=== PATIENT | female | born 1940 | race Caucasian/White ===

== ENCOUNTER 2023-11-16 09:48 | Emergency (ER) | payer OTHER ==
[2023-11-16] MEDS ORDERED: NA CHLORIDE 0.9% 1,000 ML ONE (10:18)
[2023-11-16] MEDS ORDERED: FAMOTIDINE 20 MG/2 ML VIAL IV ONE (10:18)
[2023-11-16] MEDS ORDERED: NA CHLORIDE 0.9% 500 ML ONE (10:18)
--- NOTE | 2023-11-16 10:34 | RAD REPORT ---
EXAMINATION: ONE VIEW CHEST XR CLINICAL INDICATION: Female, 83 years old.,ABDOMINAL DISTENTION TECHNIQUE: Frontal chest projection is submitted. Examination is limited by patient positioning and t echnique. COMPARISON: 06/22/2011 FINDINGS: Crescentic right midlung pleural-based opacity measuring up to 2 cm is progressive or more discrete t maloney on prior exam. The lungs are well inflated and otherwise clear. No pneumothorax or sizable effusion. The heart is normal in size. IMPRESSION: Right midlung pleural-based 2 cm opacity, is indeterminate. This deserves additional evaluation by de dicated chest CT, which can be performed on an outpatient basis.
[2023-11-16 10:53] LABS: PT Prothrombin Time 17.2 SECONDS (9.4-12.5); Protime INR 1.56
[2023-11-16 10:56] LABS: Hematocrit 37.9 % (36.0-45.0); Hemoglobin 12.9 g/dL (12.0-15.0); MCH 30.3 pg (27.0-35.0); MCV 88.9 fL (80-100); MPV 8.7 fL (7.6-11.3); Platelets 434 thou/uL (152-406); RBC Red Blood Cell Count 4.26 M/uL (3.86-4.86); Red Cell Distribution Width 17.4 % (12.1-15.2)
[2023-11-16 11:08] LABS: Albumin 2.4 g/dL (3.4-5.0); Albumin/Globulin Ratio 0.5 (1.1-1.8); Anion Gap 9.8 mEq/L (5.0-15.0); Bilirubin Direct 12.6 mg/dL (0-0.2); Bilirubin Indirect, Calculated 2.8 mg/dL (0.2-0.8); Bilirubin Total 15.4 mg/dL (0.2-1.0); Globulin 4.4 g/dL (2.3-3.5); Magnesium 1.8 mg/dL (1.6-2.4); Potassium 2.8 mEq/L (3.5-5.1); Protein, Total 6.8 g/dL (6.4-8.2); Troponin High Sensitivity 12.3 pg/mL (<58.9)
[2023-11-16 11:17] LABS: Calcium Oxalate Crystals- Ur Few /HPF (None Seen); Specific Gravity 1.009 (1.005-1.030); Sqamous Epithelial <5 /HPF (None Seen); Transitional Epithelial <5 /HPF (None Seen); Urine Bacteria None Seen /HPF (<20); Urine Bilirubin 2+ (Negative); Urine Blood Negative (Negative); Urine Clarity Turbid (Clear); Urine Color Dark-Yellow (Yellow); Urine Culture Reflex Order NOT NEEDED; Urine Glucose NEGATIVE (Negative); Urine Ketones NEGATIVE (Negative); Urine Microscopic Reflex YN ORDER UMIC; Urine Mucus Slight /HPF (None Seen); Urine Nitrite NEGATIVE (Negative); Urine Protein NEGATIVE (Negative); Urine RBC <5 /HPF (None Seen); Urine Urobilinogen Normal (Normal); Urine WBC <5 /HPF (<5); Urine pH 6.5 (5.0-7.0)
[2023-11-16] MEDS ORDERED: DIGOXIN 0.25 MG/ML AMP ONE (11:18)
[2023-11-16] MEDS ORDERED: METOPROLOL XL 50 MG TAB PO ONE (11:18)
[2023-11-16] MEDS ORDERED: METOPROLOL TARTRATE 5 MG/5 ML INJ IV ONE ×3 (11:19→12:19)
[2023-11-16] MEDS ORDERED: KCL 20 MEQ/100 mL IVPB 100 ML IV ONE (11:19)
[2023-11-16] MEDS ORDERED: POTASSIUM 25 MEQ EFFERV TAB ONE (11:19)
[2023-11-16 12:15] LABS: Blood Morphology Comment NOTED (NOT SEEN); Differential Total Cells Count 100; Lymphocytes 11 % (15-42); Monocytes 13 % (0-10); Platelet Estimate INCR; Segmented Neutrophils 76 % (40-80); Target Cells 3+
[2023-11-16 12:16] LABS: Rouleau NOTED; Stomatocytes 3+
[2023-11-16] MEDS ORDERED: MAGNESIUM SULFATE 1 gm IVPB 1 GM/100 ML BAG IV ONE (12:19)
--- NOTE | 2023-11-16 12:19 | EDPHYS ---
Physician Documentation [facility] Name: Aimee Mixon Age: 83 yrs Sex: Female : 1940 Arrival Date: 11/16/2023 Time: 09:48 Bed 6 Private MD: SHAMIKA Physician Gagandeep Beaulieu HPI: 11/15 12:10 This 83 yrs old Female presents to ER via Wheelchair with complaints of teddy Abnormal Lab Results, Jaundice. 12:10 The patient presents with abdominal distention. Onset: The symptoms/episode teddy began/occurred 2 week(s) ago. jaundice , painless. Onset: The symptoms/episode began/occurred 2 week(s) ago. The symptoms do not radiate. Associated signs and symptoms: none. Modifying factors: The symptoms are alleviated by nothing, the symptoms are aggravated by nothing. Severity of pain: At its worst the pain was mild in the emergency department the pain is unchanged. Severity of symptoms: At their worst the symptoms were mild in the emergency department the symptoms are unchanged. Historical: - Allergies: 10:19 Avelox; ap3 10:19 Azithromycin; ap3 10:19 Keflex; ap3 10:19 Latex; ap3 10:19 PENICILLINS; ap3 10:19 Sulfa (Sulfonamide Antibiotics); ap3 10:19 Rifampin; ap3 - PMHx: 10:19 None; ap3 - Immunization history:: Client reports having NOT received the Covid vaccine. - Infectious Disease History:: Denies. - Social history:: Smoking status: Patient denies any tobacco usage or history of. - Family history:: not pertinent. ROS: 12:10 Constitutional: Negative for fever, chills, and weight loss, Eyes: Negative for injury, teddy pain, redness, and discharge, ENT: Negative for injury, pain, and discharge, Neck: Negative for injury, pain, and swelling, Cardiovascular: Negative for chest pain, palpitations, and edema, Respiratory: Negative for shortness of breath, cough, wheezing, and pleuritic chest pain, Back: Negative for injury and pain, : Negative for injury, bleeding, discharge, and swelling, MS/Extremity: Negative for injury and deformity, Skin: Negative for injury, rash, and discoloration, Neuro: Negative for headache, weakness, numbness, tingling, and seizure, Psych: Negative for depression, anxiety, suicide ideation, homicidal ideation, and hallucinations, Allergy/Immunology: Negative for hives, rash, and allergies, Endocrine: Negative for neck swelling, polydipsia, polyuria, polyphagia, and marked weight changes, Hematologic/Lymphatic: Negative for swollen nodes, abnormal bleeding, and unusual bruising, 12:10 Abdomen/GI: Positive for abdominal pain, nausea, of the epigastric area, right upper quadrant and left upper quadrant, 12:10 Skin: Positive for jaundice, Exam: 12:10 Constitutional: This is a well developed, well nourished patient who is awake, alert, teddy and in no acute distress. Head/Face: Normocephalic, atraumatic. Eyes: Pupils equal round and reactive to light, extra-ocular motions intact. Lids and lashes normal. Conjunctiva and sclera are non-icteric and not injected. Cornea within normal limits. Periorbital areas with no swelling, redness, or edema. ENT: Nares patent. No nasal discharge, no septal abnormalities noted. Tympanic membranes are normal and external auditory canals are clear. Oropharynx with no redness, swelling, or masses, exudates, or evidence of obstruction, uvula midline. Mucous membranes moist. Neck: Trachea midline, no thyromegaly or masses palpated, and no cervical lymphadenopathy. Supple, full range of motion without nuchal rigidity, or vertebral point tenderness. No Meningismus. Chest/axilla: Normal chest wall appearance and motion. Nontender with no deformity. No lesions are appreciated. Cardiovascular: Regular rate and rhythm with a normal S1 and S2. No gallops, murmurs, or rubs. Normal PMI, no JVD. No pulse deficits. Respiratory: Lungs have equal breath sounds bilaterally, clear to auscultation and percussion. No rales, rhonchi or wheezes noted. No increased work of breathing, no retractions or nasal flaring. Abdomen/GI: Soft, non-tender, with normal bowel sounds. No distension or tympany. No guarding or rebound. No evidence of tenderness throughout. Back: No spinal tenderness. No costovertebral tenderness. Full range of motion. Female : Normal external genitalia. MS/ Extremity: Pulses equal, no cyanosis. Neurovascular intact. Full, normal range of motion. Neuro: Awake and alert, GCS 15, oriented to person, place, time, and situation. Cranial nerves II-XII grossly intact. Motor strength 5/5 in all extremities. Sensory grossly intact. Cerebellar exam normal. Normal gait. Psych: Awake, alert, with orientation to person, place and time. Behavior, mood, and affect are within normal limits. 12:10 ECG was reviewed by the Attending Physician. Vital Signs: 10:16 Pulse 93; Resp 17; Temp 98.6; Pulse Ox 99% on R/A; Weight 96.62 kg; Height 5 ft. 5 in. ;ap3 10:43 BP 136 / 105; Pulse 89; Resp 16; Pulse Ox 98% ; ko1 11:10 BP 129 / 105; Pulse 186; Resp 24; Pulse Ox 98% on R/A; ko1 11:45 BP 123 / 76; Pulse 145; Resp 22; Pulse Ox 97% ; ko1 11:53 BP 129 / 105; Pulse 144; Resp 24; Pulse Ox 99% ; ko1 12:15 BP 127 / 105; Pulse 138; Resp 22; Pulse Ox 97% ; ko1 12:20 BP 127 / 105; Pulse 140; ko1 12:40 BP 128 / 107; Pulse 112; Resp 26; Pulse Ox 97% ; ko1 14:37 BP 134 / 86; Pulse 134; Resp 26; Pulse Ox 99% ; ko1 10:16 Body Mass Index 35.44 (96.62 kg, 165.1 cm) ap3 MDM: 10:07 Patient medically screened. teddy 14:11 Differential Diagnosis altered mental status, sepsis, flu. Differential diagnosis: teddy diverticulitis, gastritis, gastroesophageal reflux disease, Irritable bowel syndrome, Mesenteric ischemia or infarction, non-specific abd pain, pancreatitis, Peptic Ulcer Disease, Perf. Duodenal Ulcer, Pyelonephritis, Ureterolithiasis, urinary tract infection. Data reviewed: vital signs, nurses notes, lab test result(s), EKG, radiologic studies, CT scan, plain films. Consideration of Admission/Observation Escalation of care including admission/observation considered. I considered the following discharge prescriptions or medication management in the emergency department Medications were administered in the Emergency Department. See MAR. Independent interpretation of the following test(s) in the Emergency Department EKG: See my EKG interpretation above. Test considered but Not performed: MRI: no mrcp. Historians other than the Patient: Family Member: family well informed. Care significantly affected by the following chronic conditions: none. Counseling: I had a detailed discussion with the patient and/or guardian regarding the historical points, exam findings, and any diagnostic results supporting the discharge/admit diagnosis, lab results, radiology results, the need to transfer to another facility, for higher level of care, [facility] does not immediately have the required specialist. 11/15 09:55 Order name: Basic Metabolic Panel; Complete Time: 11:11 [facility] 11/15 09:55 Order name: CBC with Diff; Complete Time: 13:10 [facility] 11/15 09:55 Order name: LFT's; Complete Time: 11:11 [facility] 11/15 09:55 Order name: Magnesium; Complete Time: 11:11 [facility] 11/15 09:55 Order name: NT PRO-BNP; Complete Time: 11:11 [facility] 11/15 09:55 Order name: PT-INR; Complete Time: 11:11 [facility] 11/15 09:55 Order name: Troponin HS; Complete Time: 11:11 [facility] 11/15 09:55 Order name: Lipase; Complete Time: 11:11 [facility] 11/15 09:55 Order name: Urinalysis w/ reflexes; Complete Time: 11:59 [facility] 11/15 09:55 Order name: AMMONIA; Complete Time: 11:11 [facility] 11/15 11:00 Order name: Manual Differential; Complete Time: 13:10 EDMS 11/15 09:55 Order name: XRAY Chest (1 view); Complete Time: 11:11 [facility] 11/15 12:12 Order name: Chest Abdomen Pelvis W Cont; Complete Time: 13:10 EDFL 11/15 09:55 Order name: Cardiac monitoring; Complete Time: 10:40 [facility] 11/15 09:55 Order name: EKG - Nurse/Tech; Complete Time: 10:57 [facility] 11/15 09:55 Order name: IV Saline Lock; Complete Time: 10:40 [facility] 11/15 09:55 Order name: Labs collected and sent; Complete Time: 10:41 [facility] 11/15 09:55 Order name: O2 Per Protocol; Complete Time: 10:21 [facility] 11/15 09:55 Order name: O2 Sat Monitoring; Complete Time: 10:21 [facility] Administered Medications: 13:12 Discontinued: ns 0.9% 1000 ml IV at 125 ml/hr continuous teddy 10:40 Drug: NS 0.9% IV 500 ml IV at bolus once Route: IV; Rate: bolus; Site: right ko antecubital; 11:07 Follow up: Response: No adverse reaction; IV Status: Completed infusion; IV Intake: ko1 500ml 10:40 Drug: Famotidine IVP 20 mg IVP once; dilute with 10 mL 0.9% NaCl; give over 2 minutes ko1 Route: IVP; Site: right antecubital; 10:55 Follow up: Response: No adverse reaction ko1 10:58 Drug: NS 0.9% IV 1000 ml IV at 125 ml/hr continuous Route: IV; Rate: 125 ml/hr; Site: ko right antecubital; 14:22 Follow up: Response: No adverse reaction; IV Status: Order to discontinue infusion; IV ko1 Intake: 800ml 11:35 Drug: Potassium PO Effervescent Tablet 50 mEq PO once; dissolve in 4 ounces of water or ko1 juice Route: PO; 12:06 Follow up: Response: No adverse reaction ko1 11:35 Drug: Metoprolol PO 50 mg PO once Route: PO; ko1 12:06 Follow up: Response: No adverse reaction ko1 11:36 Drug: Digoxin IVP 0.5 mg IVP once Route: IVP; Site: right antecubital; ko1 11:51 Follow up: Response: No adverse reaction; No change in condition ko1 11:40 Drug: Metoprolol IVP 5 mg IVP once; Hold for SBP <100 or HR <60. Route: IVP; Site: [facility] right antecubital; 11:55 Follow up: Response: No adverse reaction; No change in condition ko1 11:42 Drug: Potassium Chloride IV 20 mEq IV at per protocol once; administer over 1-2 hours ko1 Route: IV; Rate: per protocol; Site: right antecubital; 13:43 Follow up: Response: No adverse reaction; IV Status: Completed infusion; IV Intake: ko1 100ml 12:05 Drug: Metoprolol IVP 5 mg IVP once; Hold for SBP <100 or HR <60. Route: IVP; Site: [facility] right antecubital; 12:20 Follow up: BP 127 / 105; Pulse 140 bpm; Response: No adverse reaction ko1 12:22 Drug: Magnesium Sulfate IVPB 1 grams IVPB once over 1 hrs Route: IVPB; Infused Over: 1 ko1 hrs; Site: right antecubital; 13:42 Follow up: Response: No adverse reaction; IV Status: Completed infusion; IV Intake: ko1 100ml 12:33 Drug: Metoprolol IVP 5 mg IVP once; Hold for SBP <100 or HR <60. Route: IVP; Site: ko1 right antecubital; 12:48 Follow up: Response: No adverse reaction ko1 13:42 Drug: Ertapenem IVPB 1 grams IVPB once over 30 mins; (mix in 100 mL NS) Route: IVPB; ko1 Infused Over: 30 mins; Site: right antecubital; 14:22 Follow up: Response: No adverse reaction; IV Status: Completed infusion; IV Intake: ko1 100ml 14:21 Drug: NS 0.9% with KCl IV 20 mEq/L 1000 ml IV at ml/hr continuous Route: IV; Rate: 125 ko1 ml/hr; Site: right antecubital; 14:23 Follow up: Response: No adverse reaction; IV Status: Infusion continued upon transfer ko1 Disposition Summary: 11/16/23 12:19 Transfer Ordered Notes: Transfer Location: [facility] teddy Reason: Higher level of care teddy Condition: Fair teddy Problem: new teddy Symptoms: have improved teddy Accepting Physician: to [facility](11/16/23 14:39) ko1 Diagnosis - Unspecified jaundice teddy - Abnormal findings on diagnostic imaging of liver and biliary tract - obstructed teddy biliary tree - Persistent atrial fibrillation - with rvr , new onset teddy - Malignant neoplasm of head of pancreas teddy - Hypokalemia teddy Forms: - Medication Reconciliation Form teddy - SBAR form teddy Critical care time excluding procedures: 14:12 Critical care time: Bedside Care: 25 minutes, Consultation: 10 minutes, Family teddy Intervention: 10 minutes. Total time: 45 minutes Signatures: Dispatcher [employer] Gagandeep Brewer MD MD cha Prokisch, Amanda RN RN ap3 Xuan Ruvalcaba RN RN ko1 Corrections: (The following items were deleted from the chart) 09:56 09:56 Chest Single View+RAD.RAD.BRZ ordered. EDMS EDMS 09:56 09:56 Abdomen Limited+US.RAD.BRZ ordered. EDMS EDMS 09:56 09:56 Abdomen Pelvis W Con+CT.RAD.BRZ ordered. EDMS EDMS 12:15 12:06 Thorax W/ Con+CT.RAD.BRZ ordered. EDMS EDMS 12:24 12:19 [facility] teddy teddy 12:35 12:24 [facility] teddy teddy 14:12 12:35 [facility] teddy teddy 14:39 14:12 to [facility] teddy ko1
--- NOTE | 2023-11-16 12:19 | ER ---
Nurse's Notes [facility] Name: Aimee Mixon Age: 83 yrs Sex: Female : 1940 Arrival Date: 11/16/2023 Time: 09:48 Bed 6 Private MD: Diagnosis: Unspecified jaundice;Abnormal findings on diagnostic imaging of liver and biliary tract-obstructed biliary tree;Persistent atrial fibrillation-with rvr , new onset;Malignant neoplasm of head of pancreas;Hypokalemia Presentation: 11/15 10:16 Chief complaint: Patient states: she has noticed yellowing of her skin for approx 2 ap3 weeks, and was sent for follow up labs from their PCP. patient denies any pain. Coronavirus screen: At this time, the client does not indicate any symptoms associated with coronavirus-19. Ebola Screen: No symptoms or risks identified at this time. Initial Sepsis Screen: Does the patient meet any 2 criteria? HR > 90 bpm. Does the patient have a suspected source of infection? No. Patient's initial sepsis screen is negative. Risk Assessment: Do you want to hurt yourself or someone else? Patient reports no desire to harm self or others. Onset of symptoms is unknown. 10:16 Method Of Arrival: Wheelchair ap3 10:16 Acuity: CARLOS 2 ap3 Triage Assessment: 10:19 General: Appears in no apparent distress. Behavior is calm, cooperative, appropriate ap3 for age. Pain: Denies pain. Neuro: Level of Consciousness is awake, alert, obeys commands, Oriented to person, place, time, situation. Cardiovascular: Patient's skin is warm and dry. Respiratory: Airway is patent Respiratory effort is even, unlabored, Respiratory pattern is regular, symmetrical. Derm: Skin is jaundiced. Historical: - Allergies: 10:19 Avelox; ap3 10:19 Azithromycin; ap3 10:19 Keflex; ap3 10:19 Latex; ap3 10:19 PENICILLINS; ap3 10:19 Sulfa (Sulfonamide Antibiotics); ap3 10:19 Rifampin; ap3 - PMHx: 10:19 None; ap3 - Immunization history:: Client reports having NOT received the Covid vaccine. - Infectious Disease History:: Denies. - Social history:: Smoking status: Patient denies any tobacco usage or history of. - Family history:: not pertinent. Screenin:20 [facility] ED Fall Risk Assessment (Adult) History of falling in the last 3 months, ap3 including since admission No falls in past 3 months (0 pts) Confusion or Disorientation No (0 pts) Intoxicated or Sedated No (0 pts) Impaired Gait No (0 pts) Mobility Assist Device Used No (0 pt) Altered Elimination No (0 pt) Score/Fall Risk Level 0 - 2 = Low Risk Oriented to surroundings, Maintained a safe environment, Educated pt \T\ family on fall prevention, incl call for assistance when getting out of bed, Assessed \T\ reinforced patient's understanding of fall precautions, Hourly rounding (assess needs \T\ fall precautionary measures) done, Used ambulatory aids as needed (educated on \T\ assisted with), Used gait belt as appropriate. Abuse screen: Denies threats or abuse. Nutritional screening: No deficits noted. Tuberculosis screening: No symptoms or risk factors identified. Assessment: 10:50 Cardiovascular: Rhythm is atrial fibrillation with rapid ventricular response. ko1 11:12 General: Appears in no apparent distress. obese, Behavior is cooperative, anxious. ko1 Pain: Denies pain. Neuro: No deficits noted. Cardiovascular: No deficits noted. Respiratory: Reports shortness of breath on exertion. GI: Reports diarrhea. : Reports dark urine. EENT: No signs and/or symptoms were reported regarding the EENT system. Derm: Skin is jaundiced. Musculoskeletal: No signs and/or symptoms reported regarding the musculoskeletal system. Vital Signs: 10:16 Pulse 93; Resp 17; Temp 98.6; Pulse Ox 99% on R/A; Weight 96.62 kg; Height 5 ft. 5 in. ;ap3 10:43 BP 136 / 105; Pulse 89; Resp 16; Pulse Ox 98% ; ko1 11:10 BP 129 / 105; Pulse 186; Resp 24; Pulse Ox 98% on R/A; ko1 11:45 BP 123 / 76; Pulse 145; Resp 22; Pulse Ox 97% ; ko1 11:53 BP 129 / 105; Pulse 144; Resp 24; Pulse Ox 99% ; ko1 12:15 BP 127 / 105; Pulse 138; Resp 22; Pulse Ox 97% ; ko1 12:20 BP 127 / 105; Pulse 140; ko1 12:40 BP 128 / 107; Pulse 112; Resp 26; Pulse Ox 97% ; ko1 14:37 BP 134 / 86; Pulse 134; Resp 26; Pulse Ox 99% ; ko1 10:16 Body Mass Index 35.44 (96.62 kg, 165.1 cm) ap3 Vitals: 11:10 Cardiac Rhythm Assessment Irregular Atrial fibrillation W/rapid ventricular response. ko1 ED Course: 09:51 Patient arrived in ED. mr 09:52 Gagandeep Beaulieu MD is Attending Physician. [facility] 10:15 Xuan Ruvalcaba, RN is Primary Nurse. ko1 10:19 Triage completed. ap3 10:20 Arm band placed on right wrist. ap3 10:22 XRAY Chest (1 view) In Process Unspecified. EDMS 10:40 AMMONIA Sent. ko1 10:40 Lipase Sent. ko1 10:41 Basic Metabolic Panel Sent. ko1 10:41 CBC with Diff Sent. ko1 10:41 LFT's Sent. ko1 10:41 Magnesium Sent. ko1 10:41 NT PRO-BNP Sent. ko1 10:41 PT-INR Sent. ko1 10:41 Troponin HS Sent. ko1 10:43 Patient has correct armband on for positive identification. Allergy band placed. Bed in ko1 low position. Call light in reach. Side rails up X 1. Provided Education on: labs, tests. Client placed on continuous cardiac and pulse oximetry monitoring. NIBP monitoring applied. 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 Door closed. Noise minimized. Lights dimmed. Warm blanket given. Pillow given. 10:43 Initial lab(s) drawn, by me, sent to lab. EKG done, by ED staff, reviewed by Gagandeep Beaulieu MD. Inserted saline lock: 22 gauge in right antecubital area, using aseptic technique. Blood collected. Flushed with 10 mL NS. 11:09 Urinalysis w/ reflexes Sent. ko1 11:10 Assisted to bathroom. ko1 11:10 Urine collected: clean catch specimen, orange. ko1 11:50 Assisted to bedside commode. ko1 12:16 Chest Abdomen Pelvis W Cont In Process Unspecified. EDMS 12:38 Assisted to bedside commode. ko1 12:[address] [facility]. mb4 13:05 Connected Christofer for doc to doc. mb4 13:21 Admin (Rachel Oneal) and MD (Lluvia Razo) acceptance. mb4 13:53 [facility] enroute for transport. mb4 14:00 Assisted to bedside commode. ko1 14:25 Assisted to bedside commode. ko1 14:25 No provider procedures requiring assistance completed. Patient transferred, IV remains ko1 in place. Administered Medications: 13:12 Discontinued: ns 0.9% 1000 ml IV at 125 ml/hr continuous teddy 10:40 Drug: NS 0.9% IV 500 ml IV at bolus once Route: IV; Rate: bolus; Site: right ko1 antecubital; 11:07 Follow up: Response: No adverse reaction; IV Status: Completed infusion; IV Intake: ko1 500ml 10:40 Drug: Famotidine IVP 20 mg IVP once; dilute with 10 mL 0.9% NaCl; give over 2 minutes ko1 Route: IVP; Site: right antecubital; 10:55 Follow up: Response: No adverse reaction [facility] 10:58 Drug: NS 0.9% IV 1000 ml IV at 125 ml/hr continuous Route: IV; Rate: 125 ml/hr; Site: [facility] right antecubital; 14:22 Follow up: Response: No adverse reaction; IV Status: Order to discontinue infusion; IV ko1 Intake: 800ml 11:35 Drug: Potassium PO Effervescent Tablet 50 mEq PO once; dissolve in 4 ounces of water or ko1 juice Route: PO; 12:06 Follow up: Response: No adverse reaction ko1 11:35 Drug: Metoprolol PO 50 mg PO once Route: PO; ko1 12:06 Follow up: Response: No adverse reaction ko1 11:36 Drug: Digoxin IVP 0.5 mg IVP once Route: IVP; Site: right antecubital; ko1 11:51 Follow up: Response: No adverse reaction; No change in condition ko1 11:40 Drug: Metoprolol IVP 5 mg IVP once; Hold for SBP <100 or HR <60. Route: IVP; Site: ko1 right antecubital; 11:55 Follow up: Response: No adverse reaction; No change in condition ko1 11:42 Drug: Potassium Chloride IV 20 mEq IV at per protocol once; administer over 1-2 hours ko1 Route: IV; Rate: per protocol; Site: right antecubital; 13:43 Follow up: Response: No adverse reaction; IV Status: Completed infusion; IV Intake: ko1 100ml 12:05 Drug: Metoprolol IVP 5 mg IVP once; Hold for SBP <100 or HR <60. Route: IVP; Site: ko right antecubital; 12:20 Follow up: BP 127 / 105; Pulse 140 bpm; Response: No adverse reaction ko1 12:22 Drug: Magnesium Sulfate IVPB 1 grams IVPB once over 1 hrs Route: IVPB; Infused Over: 1 ko1 hrs; Site: right antecubital; 13:42 Follow up: Response: No adverse reaction; IV Status: Completed infusion; IV Intake: ko1 100ml 12:33 Drug: Metoprolol IVP 5 mg IVP once; Hold for SBP <100 or HR <60. Route: IVP; Site: [facility] right antecubital; 12:48 Follow up: Response: No adverse reaction ko1 13:42 Drug: Ertapenem IVPB 1 grams IVPB once over 30 mins; (mix in 100 mL NS) Route: IVPB; ko1 Infused Over: 30 mins; Site: right antecubital; 14:22 Follow up: Response: No adverse reaction; IV Status: Completed infusion; IV Intake: ko1 100ml 14:21 Drug: NS 0.9% with KCl IV 20 mEq/L 1000 ml IV at ml/hr continuous Route: IV; Rate: 125 ko1 ml/hr; Site: right antecubital; 14:23 Follow up: Response: No adverse reaction; IV Status: Infusion continued upon transfer ko1 Medication: 10:43 VIS not applicable for this client. ko1 Intake: 11:07 IV: 500ml; Total: 500ml. ko1 13:42 IV: 100ml; Total: 600ml. ko1 13:43 IV: 100ml; Total: 700ml. ko1 14:22 IV: 100ml; Total: 800ml. ko1 14:22 IV: 800ml; Total: 1600ml. ko1 Output: 11:52 Stool: 1 (Loose Stool) ; Total: 0ml. ko1 Outcome: 12:19 ER care complete, transfer ordered by MD. espinal 14:37 Transferred by [facility]. ko1 14:37 Condition: stable 14:37 Instructed on the need for transfer, 14:39 Patient left the ED. ko1 Signatures: Dispatcher [employer] EDGagandeep Martinez MD MD cha Rivera, Mary, Reg Reg mr Moira Levin, RN RN ap3 Melissa Menard mb4 Xuan Ruvalcaba, YANET RN ko1
--- NOTE | 2023-11-16 12:41 | RAD REPORT ---
EXAM: CT CHEST, ABDOMEN AND PELVIS WITH CONTRAST CLINICAL INDICATION: Female, 83 years old. [facility] MAIN ABD PAIN IV ONLY TECHNIQUE: CT chest, abdomen and pelvis was performed, following the administration of contrast, as p er department protocol. Axial, sagittal and coronal reconstructions were obtained. One or more of the following dose reduction techniques were used: Automated exposure control, adjustment of the mA a nd/or kV according to patient size, and/or iterative reconstruction. Unless otherwise specified, incidental findings do not require dedicated imaging follow-up. COMPARISON: No prior exam. FINDINGS: LUNGS AND AIRWAYS: No evidence of airspace or interstitial process. No nodules. PLEURA: No pleural effusion. No pneumothorax. MEDIASTINUM AND LYMPH NODES: No mediastinal mass or fluid collection. Normal size mediastinal, hilar, and axillary lymph nodes. THORACIC AORTA: Normal caliber and configuration. PULMONARY ARTERIES: Normal caliber. OSSEOUS STRUCTURES AND CHEST WALL: Intact. LIVER: Normal in size and contour. No focal lesion or biliary dilitation. BILIARY SYSTEM: Status post cholecystectomy. Prominent caliber of the common bile duct, up to 2.3 cm, with abrupt caliber attenuation at the level of the mass described below. At least moderate central intrahepatic biliary radicle dilation. PANCREAS: Heterogeneously hypodense/hypoenhancing pancreatic head mass, measuring up to 3.3 x 2.2 cm in greatest axial dimensions. Pancreatic duct is dilated distal to the mass, up to 7 mm in caliber, with abrupt caliber attenuation at the level of the mass. No significant encroachment upon the SMV or SMA. SPLEEN: Normal size. No focal lesion. ADRENALS: Normal; no mass. KIDNEYS AND URETERS: Normal size and contour. No hydronephrosis. URINARY BLADDER: Normal contour. GASTROINTESTINAL TRACT: Short segment somewhat nodular wall thickening, mild mucosal hyperenhancement , and caliber attenuation, along the distal sigmoid colon to the level of the rectosigmoid junction, measuring up to 14 cm in length, indeterminate. Mild distal colonic diverticulosis No bowel obstruction, free air, significant free fluid or abscess. APPENDIX: No inflammatory changes in region of appendix. LYMPH NODES: Moderately prominent suprapancreatic lymph node measuring 9 mm in short axis. Mildly pro minent left para-aortic lymph nodes, largest measuring 8 mm in short axis. These are indeterminate. ABDOMINAL AORTA AND OTHER VESSELS: Normal caliber aorta and IVC. MUSCULOSKELETAL: No acute or suspicious osseous abnormality. Incidentally noted large umbilical fat-containing hernia, hernia sac measures 9.1 x 5.6 cm in greates t axial diameters. Left inguinal hernia containing fat as well. IMPRESSION: Ill-defined heterogeneous hypoenhancing pancreatic head mass measuring up to 3.3 cm in greatest axial diameter concerning for malignancy. Dilation of the main pancreatic duct and common bile duct, with abrupt transition in caliber at the level of the mass. At least moderate central intrahepatic bi liary ductal dilation. A 14 cm segment of colonic wall thickening and nondistention along the distal sigmoid colon, could re late to mucosal malignancy versus sequelae of prior attacks of diverticulitis. Gastroenterology consultation recommended. Small upper abdominal and retroperitoneal lymph nodes, indeterminate, but may relate to metastatic ad enopathy given the pancreatic finding. THIS REPORT CONTAINS FINDINGS THAT MAY BE CRITICAL TO PATIENT CARE. The findings were verbally commun icated via telephone to Gagandeep Beaulieu MD on 11/16/2023 12:35 PM.
[2023-11-16] MEDS ORDERED: NS KCL 20MEQ 1,000 ML IV ONE (13:20)
[2023-11-16] MEDS ORDERED: ERTAPENEM NA 1 GM in NA CHLORIDE 0.9% 100 ML IVPB SCH (14:00)
[2023-11-16 16:59] VITALS: TEMP 98.6
[2023-11-16 17:12] VITALS: BP 134/86; O2SAT 99
--- NOTE | 2023-11-19 12:02 | EKG ---
Test Date: 2023-11-16 Test Time: 10:53:42 [employer] Supervisor: NAYA MEASUREMENT RESULTS: Intervals: Rate: 159 UT: QRSD: 80 QT: 296 QTc: 481 [place]: P: UT: QRS: 64 T: 228 INTERPRETIVE STATEMENTS: Atrial fibrillation ST & T wave abnormality, consider inferior ischemia or digitalis effect ST & T wave abnormality, consider anterolateral ischemia or digitalis effect Abnormal ECG Compared to ECG 08/28/2010 06:55:50 ST (T wave) deviation now present Possible ischemia now present Sinus rhythm no longer present Electronically Signed On 11-19-23 11:56:37 CDT by Sulaiman Mondragon
== END 2023-11-16 14:39 | disposition short-term general hospital (02) ==
LOC: ER 09:48
DX: C25.0 Malignant neoplasm of head of pancreas (principal); K83.1 Obstruction of bile duct; E87.6 Hypokalemia; I48.19 Other persistent atrial fibrillation; Z28.310 Unvaccinated for COVID-19
CPT/HCPCS: 96365; 96367; 96361; 93005; 85025; 81001; 80048; 36415; 82140; 83735; 85610; 80076; 84484; 83690; 83880; 71260; 74177; 71045; 96375; 99285; Q9967; J3480 ×2; J3475; J1160; J1335; J7040; J7030

== ENCOUNTER 2024-03-03 17:27 | Emergency (ER) | payer OTHER ==
--- NOTE | 2024-03-03 20:26 | ER ---
Nurse's Notes [facility] Name: Aimee Mixon Age: 83 yrs Sex: Female : 1940 Arrival Date: 03/03/2024 Time: 17:27 Bed 14 Private MD: Diagnosis: Encounter for attention to dressings, sutures and drains;Local infection of the skin and subcutaneous tissue, unspecified Presentation: 03/03 17:56 Chief complaint: Patient states: Biliary tube insertion site has drainage onset today. cm10 Pt states that they contacted Dr. Raman and was told to come to the ER and have it uncapped and a bag placed for drainage. Tube was capped in November 2023. Coronavirus screen: Client denies travel out of the [place] in the last 14 days. Ebola Screen: Patient denies travel to an Ebola-affected area in the 21 days before illness onset. Initial Sepsis Screen: Does the patient meet any 2 criteria? No. Patient's initial sepsis screen is negative. Does the patient have a suspected source of infection? No. Patient's initial sepsis screen is negative. Risk Assessment: Do you want to hurt yourself or someone else? Patient reports no desire to harm self or others. Onset of symptoms was March 03, 2024. 17:56 Method Of Arrival: Wheelchair cm10 17:56 Acuity: CARLOS 3 cm10 Triage Assessment: 17:59 General: Appears in no apparent distress. uncomfortable, Behavior is calm, cooperative. cm10 Neuro: No deficits noted. Level of Consciousness is awake, alert, obeys commands, Oriented to person, place, time, situation, Appropriate for age. Respiratory: No deficits noted. Airway is compromised Respiratory effort is even, unlabored, Respiratory pattern is regular, symmetrical. Historical: - Allergies: 17:58 Avelox; cm10 17:58 Azithromycin; cm10 17:58 Keflex; cm10 17:58 Latex; cm10 17:58 PENICILLINS; cm10 17:58 Rifampin; cm10 17:58 Sulfa (Sulfonamide Antibiotics); cm10 17:58 moxifloxacin; cm10 17:58 Cephalexin; cm10 - PMHx: 17:58 Pancreatic Cancer; Atrial fibrillation; cm10 - Immunization history:: Adult Immunizations up to date. - Infectious Disease History:: Denies. - Social history:: Smoking status: Patient denies any tobacco usage or history of. Screenin:00 [facility] ED Fall Risk Assessment (Adult) History of falling in the last 3 months, me1 including since admission No falls in past 3 months (0 pts) Confusion or Disorientation No (0 pts) Intoxicated or Sedated No (0 pts) Impaired Gait No (0 pts) Mobility Assist Device Used No (0 pt) Altered Elimination No (0 pt) Score/Fall Risk Level 0 - 2 = Low Risk Maintained a safe environment, Provided non-skid footwear, Hourly rounding (assess needs \T\ fall precautionary measures) done. Abuse screen: Denies threats or abuse. Nutritional screening: No deficits noted. Tuberculosis screening: No symptoms or risk factors identified. Assessment: 18:00 General: Appears in no apparent distress. uncomfortable, obese, well groomed, well me1 developed, Behavior is calm, cooperative, appropriate for age, Reports Biliary tube insertion site has drainage onset today. Pt states that they contacted Dr. Raman and was told to come to the ER and have it uncapped and a bag placed for drainage. Tube was capped in November 2023. Pain: Denies pain. Neuro: Level of Consciousness is awake, alert, obeys commands, Oriented to person, place, time, situation, Appropriate for age. Cardiovascular: Patient's skin is warm and dry. Respiratory: Airway is patent Respiratory effort is even, unlabored, Respiratory pattern is regular, symmetrical. GI: biliary drain to RUQ. Biliary tube insertion site has drainage onset today. Pt states that they contacted Dr. Raman and was told to come to the ER and have it uncapped and a bag placed for drainage. Tube was capped in November 2023. : No signs and/or symptoms were reported regarding the genitourinary system. EENT: No signs and/or symptoms were reported regarding the EENT system. Derm: Skin is intact, is healthy with good turgor, Skin is pink, warm \T\ dry. Musculoskeletal: No signs and/or symptoms reported regarding the musculoskeletal system. Vital Signs: 17:56 BP 142 / 65; Pulse 64; Resp 15; Temp 97.8(O); Pulse Ox 98% on R/A; Weight 97.52 kg; cm10 Height 5 ft. 5 in. ; Pain 0/10; 18:00 BP 118 / 82; Pulse 91; Resp 17; Pulse Ox 97% ; me1 19:00 BP 120 / 90; Pulse 61; Resp 16; Pulse Ox 97% ; me1 20:00 BP 124 / 81; Pulse 87; Resp 18; Pulse Ox 97% ; me1 17:56 Body Mass Index 35.78 (97.52 kg, 165.1 cm) cm10 17:56 Pain Scale: Adult cm10 ED Course: 17:31 Patient arrived in ED. al6 17:34 Gagandeep Story PA is PHCP. cp 17:34 Mark Craven MD is Attending Physician. cp 17:44 Sheila Olmedo, RN is Primary Nurse. me1 17:58 Triage completed. cm10 17:59 Arm band placed on right wrist. Patient placed in an exam room, on a stretcher. cm10 18:00 Patient has correct armband on for positive identification. Bed in low position. Call me1 light in reach. Side rails up X2. Provided Education on: POC. Verbalized understanding.. Client placed on continuous cardiac and pulse oximetry monitoring. NIBP monitoring applied. Pulse ox on. NIBP on. 18:00 No provider procedures requiring assistance completed. me1 21:02 Patient did not have IV access during this emergency room visit. me1 Administered Medications: 20:40 Drug: Doxycycline PO 100 mg PO once Route: PO; me1 20:55 Follow up: Response: No adverse reaction me1 Medication: 18:00 VIS not applicable for this client. me1 Outcome: 20:25 Discharge ordered by MD. cp 21:02 Discharged to home via wheelchair, with family, me1 21:02 Condition: stable 21:02 Discharge instructions given to patient, family, Instructed on discharge instructions, follow up and referral plans. medication usage, Demonstrated understanding of instructions, follow-up care, medications, Prescriptions given X 2, 21:02 Patient left the ED. me1 Signatures: Gagandeep Story PA PA cp Martinez, Clarissa, RN RN 10 Sheila Olmedo, YANET RN me1 Nahomi Bauer al6 Corrections: (The following items were deleted from the chart) 18:36 17:56 Chief complaint: Patient states: Biliary tube insertion site has drainage onset me1 today. Pt states that they contacted Dr. Raman and was told to come to the ER and have it uncapped and a bag placed for drainage. Tube was capped in November 2023. cm10 21:01 20:56 IV discontinued, intact, bleeding controlled, No redness/swelling at site. me1 Pressure dressing applied, me1
--- NOTE | 2024-03-03 20:26 | EDPHYS ---
Physician Documentation [facility] Name: Aimee Mixon Age: 83 yrs Sex: Female : 1940 Arrival Date: 03/03/2024 Time: 17:27 Bed 14 Private MD: ED Physician Mark Craven HPI: 03/03 18:00 This 83 yrs old Female presents to ER via Wheelchair with complaints of Biliary Tube cp probelm. 18:00 Patient is 83 y/o female with PMHX significant for pancreatic cancer who reports having cp biliary drain placed and later capped in November [address]23. [address] Raman instructed her to proceed to ED after noticing drainage around drain. Patient was instructed to have biliary drain uncapped and to have bag placed to collect drainage. Historical: - Allergies: 17:58 Avelox; cm10 17:58 Azithromycin; cm10 17:58 Keflex; cm10 17:58 Latex; cm10 17:58 PENICILLINS; cm10 17:58 Rifampin; cm10 17:58 Sulfa (Sulfonamide Antibiotics); cm10 17:58 moxifloxacin; cm10 17:58 Cephalexin; cm10 - PMHx: 17:58 Pancreatic Cancer; Atrial fibrillation; cm10 - Immunization history:: Adult Immunizations up to date. - Infectious Disease History:: Denies. - Social history:: Smoking status: Patient denies any tobacco usage or history of. ROS: 18:05 Constitutional: history per hpi cp 18:05 Constitutional: Negative for body aches, chills, fever, poor PO intake, cp 18:05 Cardiovascular: Negative for chest pain, palpitations, 18:05 Respiratory: Negative for cough, shortness of breath, wheezing, 18:05 Skin: Positive for erythema, swelling, of the left lower leg and right lower leg, 18:05 Neuro: Negative for altered mental status, 18:05 All other systems are negative, Exam: 18:10 Constitutional: The patient appears in no acute distress, alert, awake, cp non-diaphoretic, non-toxic, well developed, well nourished, obese, uncomfortable, 18:10 Head/Face: Normocephalic, atraumatic. cp 18:10 Eyes: Periorbital structures: appear normal, Conjunctiva: normal, no exudate, no injection, Sclera: no appreciated abnormality, Lids and lashes: appear normal, bilaterally, 18:10 ENT: External ear(s): are unremarkable, Nose: is normal, Mouth: Lips: moist, Oral mucosa: moist, Posterior pharynx: Airway: no evidence of obstruction, patent, 18:10 Chest/axilla: Inspection: normal, 18:10 Cardiovascular: Rate: normal, Rhythm: regular, Edema: left lower leg and right lower leg, JVD: is not appreciated, 18:10 Respiratory: the patient does not display signs of respiratory distress, Respirations: normal, no use of accessory muscles, no retractions, labored breathing, is not present, Breath sounds: decreased breath sounds, are not appreciated, stridor, is not appreciated, wheezing: is not appreciated, 18:10 Abdomen/GI: Inspection: right upper quadrant drain noted, straw colored fluid observed draining around drain, non-tender, no surrounding erythema, no swelling, 18:10 Neuro: Orientation: to person, place \T\ time. Mentation: is normal, Vital Signs: 17:56 BP 142 / 65; Pulse 64; Resp 15; Temp 97.8(O); Pulse Ox 98% on R/A; Weight 97.52 kg; cm10 Height 5 ft. 5 in. ; Pain 0/10; 18:00 BP 118 / 82; Pulse 91; Resp 17; Pulse Ox 97% ; me1 19:00 BP 120 / 90; Pulse 61; Resp 16; Pulse Ox 97% ; me1 20:00 BP 124 / 81; Pulse 87; Resp 18; Pulse Ox 97% ; me1 17:56 Body Mass Index 35.78 (97.52 kg, 165.1 cm) cm10 17:56 Pain Scale: Adult cm10 MDM: 17:55 Medical Screening Exam initiated cp 18:15 Differential diagnosis: sepsis, biliary obstruction, cellulitis, chf. 18:50 ED course: message left with answering service of DR Raman in attempt to contact. 20:25 Data reviewed: vital signs, nurses notes, and as a result, I will discharge patient. cp 20:25 I considered the following discharge prescriptions or medication management in the emergency department Medications were administered in the Emergency Department. See MAR. Care significantly affected by the following chronic conditions: Cancer. Counseling: I had a detailed discussion with the patient and/or guardian regarding the historical points, exam findings, and any diagnostic results supporting the discharge/admit diagnosis, the need for outpatient follow up, primary surgeon, to return to the emergency department if symptoms worsen or persist or if there are any questions or concerns that arise at home. Administered Medications: 20:40 Drug: Doxycycline PO 100 mg PO once Route: PO; me1 20:55 Follow up: Response: No adverse reaction me1 Disposition Summary: 03/03/24 20:25 Discharge Ordered Notes: Location: Home cp Problem: new cp Symptoms: have improved cp Condition: Stable cp Diagnosis - Encounter for attention to dressings, sutures and drains cp - Local infection of the skin and subcutaneous tissue, unspecified cp Followup: cp - With: Private Physician - When: 2 - 3 days - Reason: Recheck today's complaints Discharge Instructions: - Discharge Summary Sheet cp - Cellulitis, Adult cp - Biliary Drainage Catheter Placement, Care After cp - Biliary Drainage Catheter Home Guide cp Forms: - Medication Reconciliation Form cp - Antibiotic Education cp - Prescription Opioid Use cp - Patient Portal Instructions cp - Leadership Thank You Letter cp Prescriptions: - Lasix 20 mg Oral tablet - take 1 tablet ORAL route once daily for 5 days; 5 tablet; Refills: 0, Product cp Selection Permitted - Doxycycline Monohydrate 100 mg Oral Tablet - take 1 tablet ORAL route every 12 hours for 10 days; 20 tablet; Refills: 0, cp Product Selection Permitted Addendum: 03/05/2024 17:40 I was immediately available for consultation during this patient's visit. I did not e c2 personally see the patient or discuss the patient with the HAYDEE. . Signatures: Gagandeep Story PA PA cp Martinez, Clarissa, RN RN cm10 Sheila Olmedo RN RN me1 Mark Craven MD MD ec2
[2024-03-03] MEDS ORDERED: DOXYCYCLINE 100 MG CAP PO ONE (20:33)
[2024-03-03 22:18] VITALS: TEMP 97.8
[2024-03-03 22:20] VITALS: O2SAT 97
[2024-03-03 22:22] VITALS: BP 124/81
== END 2024-03-03 21:02 | disposition home or self-care (01) ==
LOC: ER 17:27
DX: Z48.00 Encounter for change or removal of nonsurgical wound dressing (principal); L08.9 Local infection of the skin and subcutaneous tissue, unspecified
CPT/HCPCS: 99284